=== PATIENT | male | born 1975 | race Caucasian/White ===

== ENCOUNTER 2019-02-15 07:19 | Emergency (ER) | payer BC ==
[2019-02-15 07:23] VITALS: TEMP 98.5
--- NOTE | 2019-02-15 07:42 | ED ---
General Adult HPI - General Chief complaint: Upper Respiratory Infection Stated complaint: Rib pain Time Seen by Provider: 02/15/19 07:32 Source: patient, family, RN notes reviewed Mode of arrival: ambulatory Limitations: no limitations - History of Present Illness Initial comments: Patient is a pleasant 44-year-old male presenting to the emergency Department with complaints of right rib pain. Onset of symptoms was in the night. Patient was coughing and felt a pop on the right side of his lower ribs. Patient has discomfort in that area since that time. Discomfort increases with cough or position changes. No abdominal pain. Patient denies any difficulty in breathing. Patient states he does have chronic wheezing from asthma and was a long-time smoker. No fevers. Patient does have problems with ALLERGIES and sinuses and is seen his primary care physician for that. no Leg pain or leg swelling - Related Data Previous Rx's Medication Instructions Recorded Cyclobenzaprine [Flexeril] 10 mg PO TID PRN #12 tablet 02/15/19 Allergies Allergy/AdvReac Type Severity Reaction Status Date / Time No Known Allergies Allergy Verified 02/15/19 07:23 Review of Systems ROS Statement: Those systems with pertinent positive or pertinent negative responses have been documented in the HPI. ROS Other: All systems not noted in ROS Statement are negative. Constitutional: Denies: fever Eyes: Denies: eye pain ENT: Denies: ear pain Respiratory: Reports: cough. Denies: dyspnea Cardiovascular: Reports: as per HPI Endocrine: Denies: fatigue Gastrointestinal: Denies: abdominal pain Genitourinary: Denies: dysuria Musculoskeletal: Denies: back pain Skin: Denies: rash Neurological: Denies: weakness Past Medical History Past Medical History: Asthma, GERD/Reflux History of Any Multi-Drug Resistant Organisms: None Reported Past Psychological History: No Psychological Hx Reported Smoking Status: Former smoker Past Alcohol Use History: Occasional Past Drug Use History: None Reported General Exam Limitations: no limitations General appearance: alert, in no apparent distress Head exam: Present: atraumatic, normocephalic Eye exam: Present: normal appearance, PERRL ENT exam: Present: normal oropharynx Neck exam: Present: normal inspection Respiratory exam: Present: chest wall tenderness (Mild tenderness right lateral lower chest wall) Cardiovascular Exam: Present: regular rate, normal rhythm GI/Abdominal exam: Present: soft. Absent: distended, tenderness Extremities exam: Present: normal inspection. Absent: pedal edema, calf tenderness Neurological exam: Present: alert Psychiatric exam: Present: normal affect, normal mood Skin exam: Present: normal color Course Vital Signs 02/15/19 07:20 Temperature 98.5 F Pulse Rate 80 Respiratory 18 Rate Blood Pressure 203/95 O2 Sat by Pulse 95 Oximetry Medical Decision Making - Medical Decision Making Patient reevaluated and resting comfortably at the side of the bed. Patient updated on results. Patient still refuses breathing treatment. Patient states he does have an inhaler at home. Patient does not feel he has any sort of infection, patient states cough is chronic and there is no fever or productive sputum. - Radiology Data Radiology results: image reviewed (Chest x-ray shows some central peribronchial cuffing.) Disposition Clinical Impression: Chest wall pain Disposition: HOME SELF-CARE Condition: Stable Instructions (If sedation given, give patient instructions): Chest Wall Pain (ED) Additional Instructions: Please follow-up with your primary care physician in the next day or 2 for recheck. Please have primary care physician recheck blood pressure. Use your inhaler as needed. Return for difficulty breathing, fevers, worsening symptoms or other concerns. Prescriptions: Cyclobenzaprine [Flexeril] 10 mg PO TID PRN #12 tablet PRN Reason: Pain Is patient prescribed a controlled substance at d/c from ED?: No Referrals: Gian Gregory MD [Primary Care Provider] - 1-2 days Time of Disposition: 08:07
--- NOTE | 2019-02-15 07:47 | XR ---
EXAMINATION TYPE: XR chest 2V DATE OF EXAM: 02/15/2019 COMPARISON: NONE HISTORY: Right rib pain after coughing TECHNIQUE: Frontal and lateral views of the chest are obtained. FINDINGS: There is no focal air space opacity, pleural effusion, or pneumothorax seen. Central perib ronchial cuffing is seen on the lateral view. The cardiac silhouette size is within normal limits. D isplaced fracture is seen. IMPRESSION: Central peribronchial cuffing can be seen in reactive or infectious airway disease.
[2019-02-15] MEDS ORDERED: ACET/COD 300 MG/30 MG STARTER PACK 6 TAB BTL PO STA (08:03)
[2019-02-15] MEDS ORDERED: IBUPROFEN 600 MG STARTER PACK 4 TAB BTL PO STA (08:03)
[2019-02-15 08:30] VITALS: BP 169/96; PULSE 69; RESP 16
== END 2019-02-15 08:28 | disposition home or self-care (01) ==
LOC: EC 07:19
DX: R07.89 Other chest pain (principal); R05 Cough; J45.909 Unspecified asthma, uncomplicated; R07.81 Pleurodynia; Z87.891 Personal history of nicotine dependence; Z53.29 Procedure and treatment not carried out because of patient's decision for other reasons
CPT/HCPCS: 71046; 99284

== ENCOUNTER → 2022-04-04 | Outpatient (CLI) | payer BC | END | disposition home or self-care (01) | LOC: LABWHC1 08:01 | PROVIDERS: ATTEND Otolaryngology | DX: J30.89 Other allergic rhinitis (principal) | CPT/HCPCS: 36415; 86001 ==

== ENCOUNTER 2024-02-20 14:15 | Emergency (ER) | payer BC ==
[2024-02-20 14:37] VITALS: RESP 18; TEMP 97.9
[2024-02-20 15:20] LABS: Basophils # (A) 0.1 k/uL (0-0.2); Basophils % (A) 1 %; Eosinophils # (A) 0.4 k/uL (0-0.7); Eosinophils % (A) 4 %; HCT 43.5 % (39.0-53.0); HGB 14.7 gm/dL (13.0-17.5); Lymphocytes # (A) 2.3 k/uL (1.0-4.8); Lymphocytes % (A) 20 %; MCH 32.5 pg (25.0-35.0); MCHC 33.9 g/dL (31.0-37.0); Monocytes # (A) 0.3 k/uL (0-1.0); Monocytes % (A) 3 %; Neutrophils # (A) 7.9 k/uL (1.3-7.7); Neutrophils % (A) 71 %; Platelet Count 250 k/uL (150-450); RBC 4.53 m/uL (4.30-5.90); RDW 12.6 % (11.5-15.5); WBC 11.1 k/uL (3.8-10.6)
[2024-02-20 15:42] LABS: ALT 31 U/L (4-49); AST 28 U/L (17-59); African American GFR (CKD) >90 (>60 ml/min/1.73 sqM); Albumin 4.4 g/dL (3.5-5.0); Alkaline Phosphatase 61 U/L (38-126); Anion Gap 6 mmol/L; Blood Urea Nitrogen 12 mg/dL (9-20); Calcium 9.6 mg/dL (8.4-10.2); Carbon Dioxide 28 mmol/L (22-30); Chloride 101 mmol/L (98-107); Glucose 208 mg/dL (74-99); Non-African American GFR(CKD) 81 (>60 ml/min/1.73 sqM); Potassium 3.9 mmol/L (3.5-5.1); Sodium 135 mmol/L (137-145); Total Bilirubin 0.7 mg/dL (0.2-1.3); Total Protein 6.8 g/dL (6.3-8.2)
--- NOTE | 2024-02-20 16:01 | XR ---
EXAMINATION TYPE: XR chest 2V DATE OF EXAM: 02/20/2024 3:56 PM CLINICAL INDICATION: Male, 49 years old with history of sob; COMPARISON: Chest radiographs from 02/15/2019 TECHNIQUE: XR chest 2V Frontal view of the chest. FINDINGS: Lungs/Pleura: There is no evidence of pleural effusion, focal consolidation, or pneumothorax. Pulmonary vascularity: Unremarkable. Heart/mediastinum: Cardiomediastinal silhouette is unremarkable. Musculoskeletal: No acute osseous pathology. IMPRESSION: No acute cardiopulmonary disease/process.
--- NOTE | 2024-02-20 16:40 | ED ---
SOB HPI - General Source: patient, RN notes reviewed Mode of arrival: ambulatory Limitations: no limitations <Ambika Arthur - Last Filed: 02/20/24 16:38> - General Source: patient, RN notes reviewed Mode of arrival: ambulatory Limitations: no limitations - History of Present Illness MD Complaint: shortness of breath, cough <Chaparrita Fuentes - Last Filed: 02/21/24 00:15> - General Chief Complaint: Shortness of Breath Stated Complaint: RIKY Time Seen by Provider: 02/20/24 16:38 - History of Present Illness Initial Comments: Note: 49-year-old male presented to ER with a chief complaint of difficulty breathing. He states has been ongoing since November. He states he also has a persistent cough. Patient has been seen multiple times outpatient and treated for pneumonia with antibiotics. He reports past couple weeks he has noted bilateral submandibular lymph nodes. Denies any fevers or chills. Denies chest pain, dizziness, lightheadedness (Ambika Arthur) This is a 49-year-old male who presents to the emergency department for shor tness of breath and coughing. States that he got sick in November with URI symptoms and a cough. He was put on steroids and antibiotics and symptoms improved. After finishing the medications the symptoms seemed to return almost immediately. He has since been on additional rounds of antibiotics and feels like his symptoms seem to improve while taking the medication, but return shortly after. He does have some shortness of breath with this, particularly with exertion. Denies any chest pain. Denies any history of asthma or similar problems in the past. He does also note some swollen lymph nodes in his neck that are tender. (Chaparrita Fuentes) - Related Data Home Medications Medication Instructions Recorded Confirmed Omeprazole 20 mg PO DAILY 02/15/19 02/15/19 Previous Rx's Medication Instructions Recorded Cyclobenzaprine [Flexeril] 10 mg PO TID PRN #12 tablet 02/15/19 Azithromycin [Zithromax] 250 mg PO DIRECTED 5 Days #6 tab 02/20/24 Budesonide/Formoterol Fumarate 2 puff INHALATION BID #10.2 gm 02/20/24 [Symbicort 80-4.5 Mcg Inhaler] predniSONE 50 mg PO DAILY 5 Days #5 tab 02/20/24 Allergies Allergy/AdvReac Type Severity Reaction Status Date / Time No Known Allergies Allergy Verified 02/20/24 14:36 Review of Systems ROS Other: All systems not noted in ROS Statement are negative. <Ambika Arthur - Last Filed: 02/20/24 16:38> ROS Other: All systems not noted in ROS Statement are negative. <Chaparrita Fuentes - Last Filed: 02/21/24 00:15> ROS Statement: Those systems with pertinent positive or pertinent negative responses have been documented in the HPI. Past Medical History Past Medical History: Asthma, GERD/Reflux History of Any Multi-Drug Resistant Organisms: None Reported Past Surgical History: Appendectomy, Orthopedic Surgery Past Psychological History: No Psychological Hx Reported Smoking Status: Never smoker Past Alcohol Use History: Heavy Past Drug Use History: None Reported <Ambika Arthur - Last Filed: 02/20/24 16:38> General Exam Limitations: no limitations <Ambika Arthur - Last Filed: 02/20/24 16:38> Limitations: no limitations General appearance: alert, in no apparent distress Head exam: Present: atraumatic, normocephalic, normal inspection Neck exam: Present: lymphadenopathy Respiratory exam: Present: wheezes, decreased breath sounds, prolonged expiratory Cardiovascular Exam: Present: regular rate, normal rhythm, normal heart sounds. Absent: systolic murmur, diastolic murmur, rubs, gallop, clicks Neurological exam: Present: alert, oriented X3, CN II-XII intact Psychiatric exam: Present: normal affect, normal mood Skin exam: Present: warm, dry, intact, normal color. Absent: rash <Chaparrita Fuentes - Last Filed: 02/21/24 00:15> - General Exam Comments Initial Comments: Visual Physical Exam Vital signs reviewed General: Well-appearing, nontoxic, no acute distress. Head: Normocephalic, atraumatic Eyes: PERRLA, EOMI ENT: Airway patent, edema to bilateral submandibular region Chest: Nonlabored breathing Skin: No visual rash, normal skin tone Neuro: Alert and oriented 3 Musculoskeletal: No gross abnormalities (Ambika Arthur) Course Vital Signs 02/20/24 02/20/24 02/20/24 14:33 18:11 18:21 Temperature 97.9 F Pulse Rate 104 H 72 77 Respiratory 18 18 18 Rate Blood Pressure 158/86 O2 Sat by Pulse 95 Oximetry 02/20/24 19:29 Temperature Pulse Rate 100 Respiratory 18 Rate Blood Pressure 159/86 O2 Sat by Pulse 98 Oximetry Medical Decision Making - Lab Data Result diagrams: 02/20/24 14:51 02/20/24 14:51 <Ambika Arthur - Last Filed: 02/20/24 16:38> - Lab Data Result diagrams: 02/20/24 14:51 02/20/24 14:51 - Radiology Data Radiology results: report reviewed, image reviewed <Chaparrita Fuenets - Last Filed: 02/21/24 00:15> - Medical Decision Making I performed the quick note portion of this chart. Electronically signed by Ambika Arthur PA-C (Ambika Arthur) This is a 49-year-old male who presents to the emergency department for shortne ss of breath and coughing. Was pt. sent in by a medical professional or institution? @ -No Did you speak to anyone other than the patient for history? @ -No Did you review nursing and triage notes? @ -Yes, and I agree, it is accurate with regards to the patient's symptoms. Were old charts reviewed? @ -No Differential Diagnosis? @ -Differential Dyspnea: Coronary syndrome, arrhythmia, tamponade, asthma, COPD, pulmonary embolism, pneumonia, pneumothorax, pulmonary effusion, anaphylaxis, diabetic ketoacidosis, flailed chest, pulmonary contusion, diaphragmatic rupture, anemia, neuromuscular, this is not meant to be an all-inclusive list. EKG interpreted by me (3pts min.)? @ -EKG interpreted by me demonstrating the following: Sinus rhythm. Ventricular rate 94 bpm, CT interval 135 ms, QRS duration 96 ms, QTc 403 ms. X-rays interpreted by me (1pt min.)? @ -Chest x-ray obtained, my interpretation identifies no localized consolidations or infiltrates. CT interpreted by me (1pt min.)? @ -CTA of the chest obtained. My interpretation identifies no evidence of a pulmonary embolus. U/S interpreted by me (1pt. min.)? @ -Not obtained What testing was considered but not performed? (CT, X-rays, U/S, labs)? Why? @ -None What meds were considered but not given? Why? @ -None Did you discuss the management of the patient with other professionals? @ -No Did you reconcile home meds? @ -No Was smoking cessation discussed for >3mins.? @ -No Was critical care preformed (if so, how long)? @ -No Were there social determinants of health that impacted care today? How? (Homelessness, low income, unemployed, alcoholism, drug addiction, transportation, low edu. Level, literacy, decrease access to med. care, correction, rehab)? @ -No Was there de-escalation of care discussed even if they declined? (Discuss DNR or withdrawal of care, Hospice)? @ -No What co-morbidities impacted this encounter? (DM, HTN, Smoking, COPD, CAD, Cancer, CVA, Hep., AIDS, mental health diagnosis, sleep apnea, morbid obesity)? @ -None Was patient admitted / discharged? @ -Discharged. Lab work relatively unremarkable. Troponin negative. COVID, influenza, and RSV testing negative. Heterophile negative. Chest x-ray reveals no acute process. Given the progressive nature of his symptoms, we proceeded with a CT scan for further evaluation. CTA was obtained revealing no evidence of a pulmonary embolus or other acute process. Patient did have wheezing and decreased aeration on exam. DuoNeb breathing treatment was administered with improvement in symptoms and aeration. Discussed the possibility of him developing asthma or COPD. Prescription for azithromycin and prednisone provided along with a Symbicort inhaler to see if that is helpful. He does already have an albuterol inhaler he can use at home as needed. Information for pulmonology follow-up provided. Otherwise advised close follow-up with his PCP. Patient discharged home in stable condition. Case discussed with ED attending Dr. Rosas. Return precautions reviewed in depth, the patient is instructed to return to the emergency department with any new, worsening, or concerning symptoms. Patient verbalized understanding. Undiagnosed new problem with uncertain prognosis? @ -None Drug Therapy requiring intensive monitoring for toxicity (Heparin, Nitro, Insulin, Cardizem)? @ -None Were any procedures done? @ -None Diagnosis/symptom? @ -Cough, wheezing, shortness of breath Acute, or Chronic, or Acute on Chronic? @ -Chronic Uncomplicated (without systemic symptoms) or Complicated (systemic symptoms)? @ -Uncomplicated Side effects of treatment? @ -None Exacerbation, Progression, or Severe Exacerbation] @ -Progression Poses a threat to life or bodily function? @ -Unclear, this will depend on the cause (Chaparrita Fuentes) - Lab Data Lab Results 02/20/24 02/20/24 02/20/24 Range/Units 14:40 14:51 14:51 WBC 11.1 H (3.8-10.6) k/uL RBC 4.53 (4.30-5.90) m/uL Hgb 14.7 (13.0-17.5) gm/dL Hct 43.5 (39.0-53.0) % MCV 96.0 (80.0-100.0) fL MCH 32.5 (25.0-35.0) pg MCHC 33.9 (31.0-37.0) g/dL RDW 12.6 (11.5-15.5) % Plt Count 250 (150-450) k/uL MPV 8.0 Neutrophils % 71 % Lymphocytes % 20 % Monocytes % 3 % Eosinophils % 4 % Basophils % 1 % Neutrophils # 7.9 H (1.3-7.7) k/uL Lymphocytes # 2.3 (1.0-4.8) k/uL Monocytes # 0.3 (0-1.0) k/uL Eosinophils # 0.4 (0-0.7) k/uL Basophils # 0.1 (0-0.2) k/uL Sodium 135 L (137-145) mmol/L Potassium 3.9 (3.5-5.1) mmol/L Chloride 101 (98-107) mmol/L Carbon Dioxide 28 (22-30) mmol/L Anion Gap 6 mmol/L BUN 12 (9-20) mg/dL Creatinine 1.07 (0.66-1.25) mg/dL Est GFR (CKD-EPI)AfAm >90 (>60 ml/min/1.73 sqM) Est GFR (CKD-EPI)NonAf 81 (>60 ml/min/1.73 sqM) Glucose 208 H (74-99) mg/dL Calcium 9.6 (8.4-10.2) mg/dL Total Bilirubin 0.7 (0.2-1.3) mg/dL AST 28 (17-59) U/L ALT 31 (4-49) U/L Alkaline Phosphatase 61 (38-126) U/L Troponin I (0.000-0.034) ng/mL NT-Pro-B Natriuret Pep pg/mL Total Protein 6.8 (6.3-8.2) g/dL Albumin 4.4 (3.5-5.0) g/dL Heterophile Antibody (Negative) Influenza Type A (PCR) Not Detected (Not Detectd) Influenza Type B (PCR) Not Detected (Not Detectd) RSV (PCR) Not Detected (Not Detectd) SARS-CoV-2 (PCR) Not Detected (Not Detectd) 02/20/24 02/20/24 02/20/24 Range/Units 18:05 18:05 18:05 WBC (3.8-10.6) k/uL RBC (4.30-5.90) m/uL Hgb (13.0-17.5) gm/dL Hct (39.0-53.0) % MCV (80.0-100.0) fL MCH (25.0-35.0) pg MCHC (31.0-37.0) g/dL RDW (11.5-15.5) % Plt Count (150-450) k/uL MPV Neutrophils % % Lymphocytes % % Monocytes % % Eosinophils % % Basophils % % Neutrophils # (1.3-7.7) k/uL Lymphocytes # (1.0-4.8) k/uL Monocytes # (0-1.0) k/uL Eosinophils # (0-0.7) k/uL Basophils # (0-0.2) k/uL Sodium (137-145) mmol/L Potassium (3.5-5.1) mmol/L Chloride (98-107) mmol/L Carbon Dioxide (22-30) mmol/L Anion Gap mmol/L BUN (9-20) mg/dL Creatinine (0.66-1.25) mg/dL Est GFR (CKD-EPI)AfAm (>60 ml/min/1.73 sqM) Est GFR (CKD-EPI)NonAf (>60 ml/min/1.73 sqM) Glucose (74-99) mg/dL Calcium (8.4-10.2) mg/dL Total Bilirubin (0.2-1.3) mg/dL AST (17-59) U/L ALT (4-49) U/L Alkaline Phosphatase (38-126) U/L Troponin I <0.012 (0.000-0.034) ng/mL NT-Pro-B Natriuret Pep 46 pg/mL Total Protein (6.3-8.2) g/dL Albumin (3.5-5.0) g/dL Heterophile Antibody Negative (Negative) Influenza Type A (PCR) (Not Detectd) Influenza Type B (PCR) (Not Detectd) RSV (PCR) (Not Detectd) SARS-CoV-2 (PCR) (Not Detectd) Disposition <FrancrcjohnAmbika - Last Filed: 02/20/24 16:38> Is patient prescribed a controlled substance at d/c from ED?: No Time of Disposition: 18:51 <Chaparrita Fuentes - Last Filed: 02/21/24 00:15> Clinical Impression: Cough, Wheezing, Shortness of breath Disposition: HOME SELF-CARE Condition: Fair Instructions (If sedation given, give patient instructions): Asthma (ED), Chronic Cough (ED), Bronchospasm (ED) Additional Instructions: Return to the emergency department with any new, worsening, or concerning symptoms. Take the antibiotic as prescribed for 5 days. Take the prednisone daily for 5 days. Try using the Symbicort inhaler as 2 puffs twice daily on a regular basis to see if that starts to offer you any relief. Contact the developer architect listed below. Let the office know that you were seen in the emergency department and they should schedule you for a follow-up appointment. Follow up with your primary care provider in 1-2 days. Prescriptions: predniSONE 50 mg PO DAILY 5 Days #5 tab Budesonide/Formoterol Fumarate [Symbicort 80-4.5 Mcg Inhaler] 2 puff INHALATION BID #10.2 gm Azithromycin [Zithromax] 250 mg PO DIRECTED 5 Days #6 tab Referrals: Gian Gregory MD [Primary Care Provider] - 1-2 days Zoraida Nye MD [STAFF PHYSICIAN] - 1-2 days
--- NOTE | 2024-02-20 17:52 | CT ---
EXAMINATION TYPE: CT chest angio for PE CT DLP: 1061.8 mGycm, Automated exposure control for dose reduction was used. DATE OF EXAM: 02/20/2024 5:34 PM COMPARISON: Chest radiograph from same day. . CLINICAL INDICATION: Male, 49 years old with history of ALIS, cough; alis TECHNIQUE/CONTRAST: CTA scan of the thorax is performed with IV Contrast, patient injected with 100 ml mL of Isovue 370, MIP images are created and reviewed these are created on a separate workstation.. FINDINGS: Pulmonary Artery: There is no evidence for a central filling defect within the pulmonary vasculature to suggest acute pulmonary embolism. Limited evaluation of the segmental and subsegmental branches se condary to bolus timing. The pulmonary artery is of normal size. Lungs/Pleura: No evidence of focal consolidation, pleural effusion or pneumothorax. Airway: Large airways are patent. Heart: Heart is within normal limits for size. Vasculature: No evidence of aortic aneurysm. Mediastinum: No gross evidence of adenopathy. Musculoskeletal: No acute osseous abnormalities Soft Tissues/lymph nodes: Unremarkable. Lower neck: No significant findings. Upper Abdomen: No significant findings. IMPRESSION: 1. No evidence of central pulmonary embolism. Limited evaluation of the segmental and subsegmental br anches. 2. Evidence for acute thoracic process.
[2024-02-20] MEDS: IPRATROPIUM-ALBUTEROL 3 ML NEB INHALATION STA (18:11)
[2024-02-20] MEDS: cefTRIAXone IN SWFI 1,000 MG/10 ML SYRINGE IVP STA (19:16)
[2024-02-20] MEDS: DEXAMETHASONE SOD PHOSPHATE 10 MG/ML 1 ML VIAL IVP STA (19:16)
[2024-02-20 19:31] VITALS: BP 159/86; PULSE 100
== END 2024-02-20 19:31 | disposition home or self-care (01) ==
LOC: EC 14:15
DX: R06.00 Dyspnea, unspecified
CPT/HCPCS: 36415; 71046; 71275; 80053; 83880; 84484; 85025; 86308; 87636; 93005; 94640; 96374; 96375; 99285